=== PATIENT | female | born 1980 | race Caucasian/White ===

== ENCOUNTER 2024-07-09 18:49 | Emergency (ER) | payer BC, SELFPAY ==
[2024-07-09 18:59] VITALS: BP 136/70; PULSE 106; RESP 18; TEMP 36.2; O2SAT 97
--- NOTE | 2024-07-09 18:59 | ED.URI ---
HPI - URI/Sore Throat General Chief Complaint: Upper Respiratory Infection Stated Complaint: COUGH Source: patient Mode of arrival: ambulatory Limitations: no limitations History of Present Illness HPI Narrative: 44-year-old female presented for complaint of cough and nasal congestion for over 2 weeks. States the cough is getting worse, keeping her up at night and coughing fits lead to vomiting. Denies shortness of breath with exertion, wheezing, nausea, vomiting, diarrhea, fevers or chills. Taking Mucinex for symptoms. Related Data Allergies Allergy/AdvReac Type Severity Reaction Status Date / Time No Known Allergies Allergy Verified 07/09/24 19:06 Review of Systems Review of Systems: per HPI All systems reviewed & are unremarkable except as noted in HPI and below PMFSH Comments At time of signature, I have reviewed and agree with nursing past medical, surgical, social and family history unless otherwise noted. Please see nursing chart for further information. There is no relevant family history pertinent to the presenting complaint Exam Narrative: GENERAL: Mildly ill-appearing, in no acute distress. EYES: EOMI. No redness or drainage. Conjunctivae normal. ENT: Mucous membranes pink and moist. No rhinorrhea. Left TM normal; right TM erythematous and intact. Throat normal. Uvula midline. NECK: Normal AROM. Supple. CHEST: No respiratory distress. Occasional nonproductive cough noted. Lungs clear to all nicole. HEART: Regular rate and rhythm. No murmur appreciated. SKIN: Warm, dry, no rash. Capillary refill normal. Normal skin turgor. NEURO: Alert and oriented x3. Gait steady. PSYCH: Normal affect. Course Course Emergency Course: Patient is aware of diagnosis, understands and agrees to treatment plan. Anticipatory guidance given. Patient agrees to follow-up as directed and is aware of reasons to seek care at the emergency department. Portions of this record may have been created with voice recognition software Level of Care: Express Care Visit Vital Signs Vital signs: Vital Signs Temperature 97.1 F L 07/09/24 18:59 Pulse Rate 106 H 07/09/24 18:59 Respiratory Rate 18 07/09/24 18:59 Blood Pressure 136/70 07/09/24 18:59 Pulse Oximetry 97 07/09/24 18:59 Oxygen Delivery Room Air 07/09/24 18:59 Temperature 97.1 F L 07/09/24 18:59 Pulse Rate 106 H 07/09/24 18:59 Respiratory Rate 18 07/09/24 18:59 Blood Pressure 136/70 07/09/24 18:59 Pulse Oximetry 97 07/09/24 18:59 Oxygen Delivery Room Air 07/09/24 18:59 MDM - URI/Sore Throat MDM Narrative Medical decision making narrative: Discussed physical exam findings, declines inhaler. Reviewed prescriptions.. Advised supportive measures and signs/symptoms to go to the ER. Pt is appropriate for outpt treatment and f/u. Differential Diagnosis Differential diagnosis: Likely upper respiratory infection, sinusitis, viral infection, bronchitis and other Discharge Plan Discharge Clinical Impression: Bronchitis Patient Disposition: Home, Self-Care Condition: Stable Instructions: Antibiotic Form, Acute Bronchitis (ED) Additional Instructions: Acute bronchitis can be contagious because it is usually caused by infection with a virus or bacteria. It is usually for a few days but you can be contagious for up to one week. Avoid crowds until you do not have a fever and symptoms are improved Take medication as directed Recommendations: Flonase spray and Zyrtec (or Claritin/Maria R) over the counter Cough syrup may cause drowsiness; avoid driving or take it at night time. Tylenol 1000mg every 8 hours as needed for pain Rest, push fluids, and increase humidity of the air at home. Follow up with your primary care provider as needed in 1 week Go to the ER for worsening symptoms or concerns Patient Language: Estonian Prescriptions: New azithromycin [Zithromax Z-Jose] 250 mg tablet See Rx Instructions .ROUTE .COMPLEX Qty: 6 0RF Rx Instructions: For 250 mg dose pack: take 500 mg today (day 1), then 250 mg for 4 days (days 2-5) methylprednisolone [Medrol (Jose)] 4 mg tablets,dose pack See Rx Instructions .ROUTE .COMPLEX Qty: 21 0RF Rx Instructions: orally per package directions promethazine-DM 6.25-15 mg/5 mL syrup 5 ml PO Q8H PRN (Reason: cough) Qty: 118 0RF Follow-up/Referrals: Ryan,MD Martha [Primary Care Provider] - Stand Alone Forms: Work/School Release IP
== END 2024-07-09 19:42 | disposition home or self-care (01) ==
PROVIDERS: Emergency Provider Nurse Practitioner Family; PCP Family Medicine
DX: J40 Bronchitis, not specified as acute or chronic (principal)
CPT/HCPCS: 99203; G0463